=== PATIENT | female | born 1935 | race Caucasian/White ===

== ENCOUNTER 2016-04-03 07:30 | Emergency (ER) | payer BC ==
[~2016-04-03] VITALS: Ht 162.6 cm; Wt 82.3 kg
[~2016-04-03 07:30] MED LIST: ASPEC81 PO; CHOL100010 PO; FERR325T51 PO; MULT-506 PO; PANT40TA PO; PREG100C PO; SIMV40TA2 PO; TPRSR/25 PO; TRAM-10 PO
[2016-04-03 07:56] VITALS: TEMP 36.5; Ht 162.6 cm; Wt 82.3 kg
[2016-04-03] MEDS ORDERED: ONDANSETRON INJ 2 MG/ML 2 ML VIAL IV STA (08:01)
[2016-04-03] MEDS ORDERED: SODIUM CHLORIDE 0.9% 500ML 500 ML IV STA (08:01)
[2016-04-03] MEDS ORDERED: CHOL1000 PO (08:19)
[2016-04-03] MEDS ORDERED: ATOR-24 PO (08:19)
[2016-04-03] MEDS ORDERED: PREG1CAP28 PO (08:19)
[2016-04-03 09:01] LABS: BASO % 0.2 %; BASO ABS # 0.01 K/uL (0-0.2); COMPLETE YES; EOS % 2.1 %; HEMATOCRIT 41.3 % (37-47); IG% 0.3 %; LYMPH % 23.5 %; LYMPH ABS # 1.49 K/uL (1.2-3.4); MEAN CELL VOLUME 92.6 fL (80-100); MEAN CORPUSCULAR HEMOGLOBIN 31.8 pg (25-34); MEAN CORPUSCULAR HGB CONC 34.4 g/dl (32-36); MONO % 12.6 %; NEUT % 61.3 %; PLATELET COUNT 182 K/uL (130-400); RED BLOOD COUNT 4.46 M/uL (4.2-5.4); WHITE BLOOD COUNT 6.34 K/uL (4.8-10.8)
[2016-04-03 09:41] LABS: BUN/CREATININE RATIO 19.6 (10-20); CALCIUM 8.8 mg/dl (8.5-10.1); POTASSIUM 3.8 mmol/L (3.5-5.1)
[2016-04-03] MEDS ORDERED: ONDA4TAB10 SL (10:00)
[2016-04-03 10:14] VITALS: BP 118/67; PULSE 82; O2SAT 87
--- NOTE | 2016-04-03 14:07 | EMERGENCY ROOM VISIT NOTE ---
History Report prepared by Pradeep: Dion Flores Under the Supervision of: Dr. Nelson Jane M.D. First contact with patient: 07:43 Chief Complaint: ILLNESS Stated Complaint: NAUSEA, VOMITING, DIARRHEA History of Present Illness The patient is an 81 year old female who presents to the Emergency Room with complaints of persistent diarrhea beginning two days prior to arrival. She rates her discomfort as an 8/10 and associates abdominal pain with today's symptoms. The patient notes she experienced nausea and vomiting the past two days but has not had any episodes of vomiting today. The patient describes her abdominal pain as a mild soreness. She states that she has very frequent watery diarrhea without blood. The patient denies recent antibiotic use, recent travel outside of the country, sick contact, and blood in the stool. She notes a history of a major back surgery, cholecystectomy, and appendectomy. It is noted the patient has a history of CABG, as well. Source of History: patient Onset: two days [employer] Position: other (global) Symptom Intensity: 8/10 Quality: other (diarrhea) Timing: other (persistent) Associated Symptoms: + abdominal pain (mild soreness), + diarrhea, + nausea (resolved), + vomiting (resolved), No hematochezia, No melena Review of Systems See HPI for pertinent positives & negatives. A total of 10 systems reviewed and were otherwise negative. Past Medical & Surgical Medical Problems: (1) Asthma, Unspecified (2) Chr Ischemic Hrt Dis Nec (3) Esophageal Reflux (4) Hyperlipidemia Nec/Nos (5) Hypertension Nos (6) Lumbago (7) Old Myocardial Infarct (8) Spinal stenosis Surgical Problems: (1) Aortocoronary Bypass (2) S/P appendectomy (3) S/P CABG (coronary artery bypass graft) (4) S/P cholecystectomy Family History FHx: gallbladder disease Heart disease Social History Smoking Status: Never Smoker Drug Use: none Marital Status: Occupation Status: retired Current/Historical Medications Scheduled Aspirin Enteric Coated (Ecotrin Or Generic *), 81 MG PO QAM Atorvastatin (Lipitor), 40 MG PO UD Cholecalciferol (Vitamin D), 1,000 INTER.UNIT PO QAM Ferrous Sulfate (Iron Supplement), 325 MG PO DAILY Metoprolol Succinate (Metoprolol Succinate ER), 25 MG PO HS Multivitamin (Multivitamin), 1 TAB PO QAM Ondasetron Odt (Zofran Odt), 4 MG SL Q6H Pantoprazole (Protonix), 40 MG PO QAM Pregabalin (Lyrica), 75 MG PO BID Scheduled PRN Tramadol (Ultram), 50 MG PO Q6H PRN for Pain Allergies Coded Allergies: Iodinated Diagnostic Agents (Verified Allergy, Intermediate, HIVES/ PERIORBITAL SWELLING, 04/03/16) Ciprofloxacin (Verified Allergy, Mild, RASH, 04/03/16) Prednisone (Verified Allergy, Mild, `, 04/03/16) Quinolones (Verified Allergy, Mild, CIPRO-RASH, 04/03/16) Sulfamethoxazole w/Trimethoprim (Verified Allergy, Mild, RASH, 04/03/16) Physical Exam Vital Signs Date Time Temp Pulse Resp B/P Pulse Ox O2 Delivery O2 Flow Rate FiO2 04/03/16 10:14 82 18 118/67 87 Room Air 04/03/16 07:56 36.5 83 20 144/94 97 Room Air 04/03/16 07:41 81 Physical Exam Constitutional: Vital signs reviewed. Eyes: Pupils are equal round reactive to light. Conjunctiva are noninjected. ENT: Pharynx is clear without erythema or exudate. Mucous membranes are dry. Neck supple without meningeal signs. Respiratory: Clear to auscultation bilaterally. Breath sounds are equal bilaterally. Cardiovascular: Regular rate and rhythm. No rubs or gallops. GI: Soft, nondistended with mild epigastric tenderness. No guarding. Bowel sounds are present. Musculoskeletal: No peripheral edema. No lower extremity tenderness. Integumentary: No cyanosis. Neurological: The patient is awake and alert. No focal deficits. Psychiatric: Normal affect. Medical Decision & Procedures Laboratory Results 04/03/16 08:23 Red Blood Count 4.46, Mean Corpuscular Volume 92.6, Mean Corpuscular Hemoglobin 31.8, Mean Corpuscular Hemoglobin Concent 34.4, Mean Platelet Volume 12.0, Neutrophils (%) (Auto) 61.3, Lymphocytes (%) (Auto) 23.5, Monocytes (%) (Auto) 12.6, Eosinophils (%) (Auto) 2.1, Basophils (%) (Auto) 0.2, Neutrophils # (Auto ) 3.89, Lymphocytes # (Auto) 1.49, Monocytes # (Auto) 0.80, Eosinophils # (Auto ) 0.13, Basophils # (Auto) 0.01 04/03/16 08:23 Test 04/03/16 08:23 White Blood Count 6.34 K/uL (4.8-10.8) Red Blood Count 4.46 M/uL (4.2-5.4) Hemoglobin 14.2 g/dL (12.0-16.0) Hematocrit 41.3 % (37-47) Mean Corpuscular Volume 92.6 fL (80-100) Mean Corpuscular Hemoglobin 31.8 pg (25-34) Mean Corpuscular Hemoglobin Concent 34.4 g/dl (32-36) Platelet Count 182 K/uL (130-400) Mean Platelet Volume 12.0 fL (7.4-10.4) Neutrophils (%) (Auto) 61.3 % Lymphocytes (%) (Auto) 23.5 % Monocytes (%) (Auto) 12.6 % Eosinophils (%) (Auto) 2.1 % Basophils (%) (Auto) 0.2 % Neutrophils # (Auto) 3.89 K/uL (1.4-6.5) Lymphocytes # (Auto) 1.49 K/uL (1.2-3.4) Monocytes # (Auto) 0.80 K/uL (0.11-0.59) Eosinophils # (Auto) 0.13 K/uL (0-0.5) Basophils # (Auto) 0.01 K/uL (0-0.2) RDW Standard Deviation 45.8 fL (36.4-46.3) RDW Coefficient of Variation 13.5 % (11.5-14.5) Immature Granulocyte % (Auto) 0.3 % Immature Granulocyte # (Auto) 0.02 K/uL (0.00-0.02) Anion Gap 13.0 mmol/L (3-11) Est Creatinine Clear Calc Drug Dose 45.8 ml/min Estimated GFR () 61.2 Estimated GFR (Non- 52.8 BUN/Creatinine Ratio 19.6 (10-20) Calcium Level 8.8 mg/dl (8.5-10.1) Total Bilirubin 0.6 mg/dl (0.2-1) Direct Bilirubin 0.2 mg/dl (0-0.2) Aspartate Amino Transf (AST/SGOT) 36 U/L (15-37) Alanine Aminotransferase (ALT/SGPT) 26 U/L (12-78) Alkaline Phosphatase 83 U/L (45-117) Total Protein 7.3 gm/dl (6.4-8.2) Albumin 3.4 gm/dl (3.4-5.0) Lipase 81 U/L (73-393) Laboratory results as reviewed by me. Medications Administered Medications (Trade) Dose Ordered Sig/Sailaja Route Start Time Stop Time Status Last Admin Dose Admin Ondansetron HCl 4 mg 4 mg NOW STAT IV 04/03/16 08:01 04/03/16 08:03 DC 04/03/16 08:37 4 MG Sodium Chloride (Nss 500ml) 500 ml @ 999 mls/hr Q31M STAT IV 04/03/16 08:01 04/03/16 08:31 DC 04/03/16 08:37 999 MLS/HR ECG Indication: other (nursing protocol) Rate (beats per minute): 79 Rhythm: normal sinus Findings: no acute ischemic change, no ectopy ED Course 0756: The patient was evaluated in room B3B. A complete history and physical exam was performed. 0801: Ordered Sodium Chloride 500 ml @ 999 mls/hr IV, Zofran Inj 4 mg IV. 0900: I reassessed the patient at this time, and she is feeling better. The patient is waiting on her test results. 0958: Upon reevaluation, the patient appeared to have improvement of her symptoms. I discussed tonight's findings with her. She verbalized agreement of the treatment plan. The patient was discharged home. Medical Decision This is an 81-year-old female who presents with vomiting and diarrhea. Differential diagnosis includes food borne illness, gastroenteritis, dehydration , electrolyte abnormality, irritable bowel syndrome. I did perform a limited focused review of portions of the patient's old chart on the electronic medical record. The patient has had no recent pertinent visits to this hospital. I did evaluate the patient as noted above. The patient is presenting with vomiting and diarrhea. We have been seen a significant number of patients with similar symptoms. She has no significant abdominal tenderness to suggest an acute surgical process. She does have some mild epigastric pain from vomiting. She does not have a gallbladder. IV access was established. I did personally review the patient's 12-lead EKG as described above. I did order and review the patient's blood work as noted in the electronic medical record. Her white blood cell count is not elevated. LFTs and lipase are unremarkable. I did treat patient with Zofran and normal saline IV. I did reassess the patient. She is feeling better. I did discuss her test results with her and her daughter. She was discharged with a prescription for Zofran. She was advised to follow with her doctor. Impression Primary Impression: Dehydration Additional Impressions: Vomiting Diarrhea Scribe Attestation The scribe's documentation has been prepared under my direct and personally reviewed by me in its entirety. I confirm that the note above accurately reflects all work, treatment, procedures, and medical decision making performed by me. Departure Information Dispostion Home / Self-Care Prescriptions Ondasetron Odt (ZOFRAN ODT) 4 Mg Tab 4 MG SL Q6H for Nausea, #10 TAB Prov: Nelson Jane M.D. 04/03/16 Referrals Ant Davis M.D. (PCP) Forms HOME CARE DOCUMENTATION FORM, IMPORTANT VISIT INFORMATION, WORK / SCHOOL INSTRUCTIONS Patient Instructions ED Vomiting Diarrhea Nonspecific Ad, My [facility] Additional Instructions You have been examined and treated today on an emergency basis only. This is not a substitute for, or an effort to provide, complete comprehensive medical care. It is impossible to recognize and treat all injuries or illnesses in a single emergency department visit. It is therefore important that you follow up closely with your physician. Call as soon as possible for an appointment. Return for worsening symptoms or if you develop fever, rectal bleeding or any other concerning symptoms. Problem Qualifiers
== END 2016-04-03 10:28 | disposition home or self-care (01) ==
LOC: EDBD 07:30 → C.EDB 07:32
DX: E86.0 Dehydration (principal); R11.2 Nausea with vomiting, unspecified; R19.7 Diarrhea, unspecified; I10 Essential (primary) hypertension; E78.5 Hyperlipidemia, unspecified; K21.9 Gastro-esophageal reflux disease without esophagitis; I25.2 Old myocardial infarction; Z95.1 Presence of aortocoronary bypass graft; Z90.49 Acquired absence of other specified parts of digestive tract; Z79.82 Long term (current) use of aspirin; Z79.899 Other long term (current) drug therapy

== ENCOUNTER → 2016-09-21 | Outpatient (CLI) | payer BC ==
[~2016-09-21] MED LIST changes: +ATOR-24 PO; +ONDA4TAB10 SL; -PREG100C PO; +PREG1CAP28 PO; -SIMV40TA2 PO
[2016-09-21 12:52] LABS: ALT/SGPT 26 U/L (12-78); AST/SGOT 22 U/L (15-37); BLOOD UREA NITROGEN 15 mg/dl (7-18); BUN/CREATININE RATIO 15.4 (10-20); CALCIUM 9.3 mg/dl (8.5-10.1); CARBON DIOXIDE 29 mmol/L (21-32); CHLORIDE 105 mmol/L (98-107); GLUCOSE 88 mg/dl (70-99); POTASSIUM 4.3 mmol/L (3.5-5.1); SODIUM 139 mmol/L (136-145)
[2016-09-21 12:55] LABS: ALKALINE PHOSPHATASE 79 U/L (45-117); CHOLESTEROL 149 mg/dl (0-200); CHOLESTEROL/HDL RATIO 1.9; HDL CHOLESTEROL 78 mg/dl; LDL CHOLESTEROL CALCULATED 54 mg/dl; TRIGLYCERIDES 85 mg/dl (0-150); VERY LOW DENSITY LIPOPROT CALC 17 mg/dl
== END | disposition home or self-care (01) ==
LOC: C.LABBFT 08:49
PROVIDERS: ATTEND Internal Medicine Interventional Cardiology
DX: I25.10 Atherosclerotic heart disease of native coronary artery without angina pectoris (principal)